=== PATIENT | male | born 1960 | race African-American/Black ===

== ENCOUNTER 2017-12-12 22:10 | Emergency (ER) | payer OTHER ==
[2017-12-12 22:34] LABS: #Eosinphils 0.3 thou/uL (0.0-0.7); #Lymphocytes 2.2 thou/uL (1.20-3.40); #Monocytes 0.7 thou/uL (0.11-0.59); #Neutrophils 2.4 thou/uL (1.40-6.50); %Basophils 0.9 % (0.0-1.0); %Eosinophils 5.1 % (0.0-10.0); %Lymphocytes 39.6 % (21.0-51.0); %Monocytes 11.8 % (0.0-10.0); %Neutrophils 42.7 % (42.0-75.0); Mean Corpuscular HGB CONC 32.6 g/dL (32.0-36.0); Mean Corpuscular Hemoglobin 27.6 pg (27.0-31.0); Mean Corpuscular Volume 84.5 fl (80.0-94.0); Mean Platelet Volume 7.5 fL (7.4-10.4); Platelet Count 194 thou/uL (130-400); Red Blood Cell (RBC) Count 5.07 mill/uL (4.70-6.10); White Blood Cell (WBC) Count 5.6 thou/uL (4.8-10.8)
[2017-12-12 22:56] LABS: ALT (SGPT) 47 U/L (8-55); AST (SGOT) 30 U/L (5-34); Alkaline Phosphatase 96 U/L (40-150); Anion Gap 13 mmol/L (10-20); BUN (Urea Nitrogen) 22 mg/dL (8.4-25.7); Bilirubin, Total 0.5 mg/dL (0.2-1.2); Calc. Creatinine Clearance 0 mL/min (70-130); Calcium 9.3 mg/dL (7.8-10.44); Carbon Dioxide 24 mmol/L (22-29); Chloride 106 mmol/L (98-107); Estimated GFR-MDRD 71; Globulin 2.8 g/dL (2.4-3.5); Glucose 109 mg/dL (70-105); Lipase 42 U/L (8-78); Potassium 3.9 mmol/L (3.5-5.1); Protein, Total 6.8 g/dL (6.0-8.3); Sodium 139 mmol/L (136-145)
== END 2017-12-12 23:34 | disposition left against medical advice (07) ==
LOC: ERS 22:10
DX: Z53.21 Procedure and treatment not carried out due to patient leaving prior to being seen by health care provider (principal)
CPT/HCPCS: 36415; 80053; 83690; 85025

== ENCOUNTER 2017-12-26 09:15 | Inpatient (IN) | payer OTHER ==
[2018-01-02 12:04] VITALS: BMI 29.6
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
[2018-01-08] MEDS ORDERED: Vancomycin HCl 1.5 GM in Sodium Chloride 0.9% 250 ML 300 ML IVPB SCH ×2 (07:00→19:00)
[2018-01-08] MEDS ORDERED: CEFAZOLIN/Water 2 GM/20 ML SYRINGE ONE (07:14)
[2018-01-08] MEDS ORDERED: Tranexamic Acid 1,000 MG/100 ML BAG ONE ×2 (07:14→11:22)
[2018-01-08] MEDS ORDERED: Ropivacaine 0.2% HCl/PF 20 ML ONE (07:42)
[2018-01-08] MEDS ORDERED: Midazolam HCl 2 mg/2 ml Vial ONE (07:42)
[2018-01-08] MEDS ORDERED: Fentanyl 100 MCG/2 ML VIAL ONE ×2 (07:42→11:14)
[2018-01-08] MEDS ORDERED: Metoprolol Tartrate 5 MG/5 ML VIAL ONE ×2 (08:10→11:23)
[2018-01-08] MEDS ORDERED: Bupivacaine 0.25% HCL 30 ML VIAL ONE (08:53)
[2018-01-08] MEDS ORDERED: Ropivacaine 0.2% 550 ML 550 ML NERVE BLCK SCH (09:29)
[2018-01-08] MEDS ORDERED: Promethazine HCl 25 MG/ML VIAL IM PRN ×2 (09:29→09:54)
[2018-01-08] MEDS ORDERED: Fentanyl 100 MCG/2 ML VIAL IV PRN (09:29)
[2018-01-08] MEDS ORDERED: HYDROcodone/Acetaminophen 10/325 mg Tablet PO PRN ×3 (09:29→12:35)
[2018-01-08] MEDS ORDERED: Zolpidem Tartrate 5 MG TAB PO PRN ×2 (09:29→12:35)
[2018-01-08] MEDS ORDERED: traMADol HCl 50 MG TAB PO PRN ×3 (09:29→12:35)
[2018-01-08] MEDS ORDERED: Ondansetron HCl/PF 4 MG/2 ML Vial IVP PRN ×3 (09:29→12:35)
[2018-01-08] MEDS ORDERED: Promethazine HCl 25 MG/ML VIAL SLOW IVP PRN ×2 (09:54→12:35)
[2018-01-08] MEDS ORDERED: Thrombin 5000 UNITS/5 ML VIAL ONE (10:23)
[2018-01-08] MEDS ORDERED: Tranexamic Acid 1,000 MG in Sodium Chloride 0.9% 100 ML IVPB SCH ×2 (11:15→12:35)
[2018-01-08] MEDS ORDERED: Ketorolac Tromethamine 30 MG/ML VIAL IVP SCH ×2 (12:00→14:00)
[2018-01-08] MEDS ORDERED: Fentanyl 100 MCG/2 ML VIAL SLOW IVP PRN (12:35)
[2018-01-08] MEDS ORDERED: Acetaminophen 325 MG TAB PO PRN (12:35)
[2018-01-08] MEDS ORDERED: diphenhydrAMINE 25 MG CAP PO PRN (12:35)
[2018-01-08] MEDS: Fentanyl 100 MCG/2 ML VIAL SLOW IVP PRN ×2 (12:44→18:50)
[2018-01-08] MEDS ORDERED: Famotidine 20 MG TAB PO SCH (12:45)
[2018-01-08] MEDS ORDERED: Hydrochlorothiazide 25 MG TAB PO SCH (12:45)
[2018-01-08] MEDS ORDERED: Ferrous Gluconate 324 MG TAB PO SCH (12:45)
[2018-01-08] MEDS ORDERED: Aspirin 81 mg Enteric Coated Tablet PO SCH (12:45)
[2018-01-08] MEDS ORDERED: Senokot S 8.6-50 MG TAB PO SCH (12:45)
[2018-01-08] MEDS ORDERED: Dextrose 50% Abboject 50 ML SYRINGE SLOW IVP PRN (12:52)
[2018-01-08] MEDS ORDERED: Dextrose 5% in Water 1,000 ML IV PRN (12:52)
[2018-01-08] MEDS ORDERED: metFORMIN 500 MG TAB PO SCH (13:00)
[2018-01-08] MEDS ORDERED: Multivitamin W/ Minerals 1 TAB PO SCH (13:00)
[2018-01-08] MEDS ORDERED: Lisinopril 20 MG TAB PO SCH (13:00)
--- NOTE | 2018-01-08 13:06 | RAD ---
LEFT KNEE TWO VIEWS: HISTORY: Postop. FINDINGS: The patient is status post total knee replacement. The knee prosthesis is in satisfactory position. No signs of fracture. IMPRESSION: Postoperative changes with placement of a total knee prosthesis. POS: [facility]
[2018-01-08] MEDS ORDERED: CEFAZOLIN/Water 2 GM/20 ML SYRINGE SLOW IVP SCH (14:00)
[2018-01-08] MEDS ORDERED: Ropivacaine 0.5% HCl/PF (150 MG/30 ML VIAL) ONE (14:01)
[2018-01-08] MEDS: HYDROcodone/Acetaminophen 10/325 mg Tablet PO PRN (14:16)
[2018-01-08] MEDS ORDERED: Lidocaine 1% PF 5 ML VIAL ONE (14:56)
[2018-01-08] MEDS ORDERED: Ondansetron HCl/PF 4 MG/2 ML Vial ONE (14:56)
[2018-01-08] MEDS ORDERED: PROPOFOL 200 MG/20 ML VIAL ONE (14:56)
[2018-01-08] MEDS ORDERED: Ketorolac Tromethamine 30 MG/ML VIAL ONE (14:56)
[2018-01-08] MEDS ORDERED: ePHEDrine/0.9% NaCl/PF SYRINGE 50 mg/10 ml ONE (14:56)
[2018-01-08] MEDS ORDERED: PHENYLEPHRINE-NS 100 MCG/ML 10 ML SYRINGE ONE (14:56)
--- NOTE | 2018-01-08 15:07 | OP ---
DATE OF PROCEDURE: 01/08/2018 SURGEON: Ishmael Birmingham M.D. DOMAIN ARCHITECT: Gama Anaya PA-C. ANESTHESIA: General plus femoral and sciatic nerve blocks. PREOPERATIVE DIAGNOSIS: Post-traumatic degenerative arthritis, left knee. POSTOPERATIVE DIAGNOSIS: Post-traumatic degenerative arthritis, left knee. PROCEDURES: Left total knee replacement with computer-assisted navigation with cemented Triathlon co mponents (#4 femoral component, #4 universal tibial baseplate with 9 mm CS plastic insert, and A32 al l plastic patellar component). TOURNIQUET TIME: Zero, not used. NARRATIVE REPORT: After satisfactory anesthesia was induced in supine position, the patient was prep ped and draped in the routine manner. A gently curved medial parapatellar incision was made incorpor ating the previous scar incision distally. Care was taken to the skin hamate and the skin and developing full thickness flaps to prevent damage to the previous scar tissue over the proximal tibia . Medial parapatellar arthrotomy was performed. Patella was dislocated laterally and portions of th e fat pad were excised for exposure. There was marked tricompartmental degenerative arthritis of the knee, especially medially, with large areas of exposed bone. Meniscal remnants and osteophytes were removed. Using the appropriate guides and the Vigoda pinless navigation system, the distal femoral and proximal tibial articular surfaces were excised with an oscillating saw to accept the trial comp onents. It was felt that #4 femoral component and #4 tibial baseplate with 9 mm CS plastic insert ga ve appropriate size, fit, stability, and correction of the preoperative deformity. The patellar estrellita cular surface was excised to accept an all plastic A32 patellar component. There was good patellar t racking. The trial components were removed. The skin incision was injected with 30 mL of 0.25% Migel macario. The wound was copiously irrigated with pulsatile lavage and the bony surfaces thoroughly clean ed and dried. The permanent components were then cemented in a single stage using 1 package of cemen t premixed with 1 gram of tobramycin powder. Excess cement was removed. There was again good fit an d stability of the components. The knee was then copiously irrigated. The medial retinaculum and qu adriceps mechanism was closed with interrupted #2 Vicryl and a running #2 Quill. Subcutaneous tissue s were closed with running 0 Quill suture and the skin closed with running subcuticular 3-0 Monoderm and SurgiSeal skin adhesive. A sterile bulky compressive dressing was applied and a sequential compr ession device was applied to his operated leg. He was awakened and taken to recovery room in stable condition. There were no apparent intraoperative complications. ESTIMATED BLOOD LOSS: 150 mL.
[2018-01-08] MEDS: Ketorolac Tromethamine 30 MG/ML VIAL IVP SCH ×2 (16:39→21:03)
[2018-01-08] MEDS: CEFAZOLIN/Water 2 GM/20 ML SYRINGE SLOW IVP SCH (16:40)
[2018-01-08] MEDS: Sodium Chloride 0.9% 1,000 ML IV SCH ×2 (17:13→22:35)
--- NOTE | 2018-01-08 19:05 | CON ---
DATE OF CONSULTATION: 01/08/2018 REASON FOR CONSULTATION: Medical management. HISTORY OF PRESENT ILLNESS: Mr. Jimenez is a 57-year-old male with a past medical history of hyperte nsion and diabetes, who was admitted to the hospital for a left knee replacement. He had a left tota l knee replacement with computer-assisted navigation with cemented Triathlon components on 01/08/2016 , and the procedure was successful. Due to his history of progressive post-traumatic degenerative ar thritis of his left knee, he has been continued on IV antibiotics to prevent first surgical infection . He otherwise has no complaints today. PAST MEDICAL HISTORY: Hypertension, type 2 diabetes mellitus, degenerative arthritis of the left kne e. PAST SURGICAL HISTORY: None. ALLERGIES: None. REVIEW OF SYSTEMS: GENERAL: Negative. HEENT: Negative. RESPIRATORY: Negative. CARDIOVASCULAR: Negative. ABDOMINAL: Negative. SKIN: Negative. MUSCULOSKELETAL: Per HPI. NEUROLOGIC: Negative. HEMATOLOGY: Negative. ALLERGY/IMMUNOLOGY: Negative. PSYCHIATRIC: Negative. PHYSICAL EXAMINATION: VITAL SIGNS: Stable. GENERAL: Not in acute distress, lying comfortably in bed. HEENT: Normocephalic, atraumatic, EOMI, PERRLA. Moist mucous membranes. NECK: Supple with full range of movement. No JVD. RESPIRATORY: Vesicular breath sounds bilaterally. No wheezes or rales. CARDIOVASCULAR: S1 and S2 only. No murmurs, rubs or gallops. ABDOMEN: Full, soft, nontender, nondistended. Bowel sounds positive. No organomegaly. SKIN: Warm, dry, well perfused with no rashes or lesions. MUSCULOSKELETAL: Left knee covered in protective cast. Dressings were clean and dry. PSYCHIATRIC: Normal mood and affect. NEUROLOGIC: Alert and oriented to time, place and person. No focal deficits. LABORATORY DATA: Unavailable/no labs done. IMAGING: Knee x-ray done on 01/08/2018 showed postoperative changes with placement of the total knee prosthesis. ASSESSMENT AND PLAN: 1. Hypertension. Blood pressure has been well controlled since admission. On outpatient basis, he takes hydrochlorothiazide and lisinopril. This can be continued. We will get a BMP in the morning a nd reassess. 2. Type 2 diabetes mellitus, this is also well controlled. He is on metformin 500 mg daily at home. Sugars have been controlled. Last glucose was [address] on a diabetic diet, finger stick glucose before meals and at bedtime. Continue metformin. Obtain hemoglobin A1c, hypoglycemia protocol, and sliding scale insulin. 3. Status post total left knee arthroplasty. Management per [facility]. He will be continued on IV cefazolin and vancomycin for now. We will continue to follow this patient. Thank you for allowing me to participate in the care of Mr. Jimenez. Ddo not hesitate to call if you have any questions.
[2018-01-08] MEDS: Aspirin 81 mg Enteric Coated Tablet PO SCH (21:04)
[2018-01-08] MEDS: Senokot S 8.6-50 MG TAB PO SCH (21:04)
[2018-01-09] MEDS: CEFAZOLIN/Water 2 GM/20 ML SYRINGE SLOW IVP SCH (00:28)
[2018-01-09] MEDS: Ketorolac Tromethamine 30 MG/ML VIAL IVP SCH ×4 (03:19→21:52)
[2018-01-09] MEDS: HumaLOG 300 UNITS/3 ML VIAL SC PRN ×3 (05:27→21:29)
[2018-01-09 05:56] LABS: Hemoglobin 12.5 g/dL (14.0-18.0); Mean Corpuscular HGB CONC 32.8 g/dL (32.0-36.0); Mean Corpuscular Hemoglobin 27.9 pg (27.0-31.0); Mean Corpuscular Volume 85.1 fl (80.0-94.0); Mean Platelet Volume 7.2 fL (7.4-10.4); Platelet Count 184 thou/uL (130-400); RBC Distribution Width 11.8 % (11.5-14.5); Red Blood Cell (RBC) Count 4.46 mill/uL (4.70-6.10); White Blood Cell (WBC) Count 7.5 thou/uL (4.8-10.8)
[2018-01-09 05:59] LABS: Hemoglobin A1c 5.7 % (4.0-6.0)
[2018-01-09 06:34] LABS: Anion Gap 8 mmol/L (10-20); BUN (Urea Nitrogen) 16 mg/dL (8.4-25.7); Calc. Creatinine Clearance 99 mL/min (70-130); Calcium 8.7 mg/dL (7.8-10.44); Carbon Dioxide 26 mmol/L (22-29); Chloride 105 mmol/L (98-107); Estimated GFR-MDRD Greater than 90; Glucose 168 mg/dL (70-105); Potassium 3.9 mmol/L (3.5-5.1); Sodium 135 mmol/L (136-145)
[2018-01-09] MEDS: HYDROcodone/Acetaminophen 10/325 mg Tablet PO PRN ×2 (08:13→19:18)
[2018-01-09] MEDS: Senokot S 8.6-50 MG TAB PO SCH ×2 (08:16→20:46)
[2018-01-09] MEDS: Aspirin 81 mg Enteric Coated Tablet PO SCH ×2 (08:17→20:46)
[2018-01-09] MEDS: Multivitamin W/ Minerals 1 TAB PO SCH (08:17)
[2018-01-09] MEDS: metFORMIN 500 MG TAB PO SCH (08:17)
[2018-01-09] MEDS: Famotidine 20 MG TAB PO SCH (08:18)
[2018-01-09] MEDS: Ferrous Gluconate 324 MG TAB PO SCH ×2 (08:18→20:46)
[2018-01-09] MEDS: Hydrochlorothiazide 25 MG TAB PO SCH (08:18)
[2018-01-09] MEDS: Lisinopril 20 MG TAB PO SCH (08:19)
[2018-01-09] MEDS: Sodium Chloride 0.9% 1,000 ML IV SCH ×2 (09:04→17:00)
[2018-01-10] MEDS: Ketorolac Tromethamine 30 MG/ML VIAL IVP SCH ×2 (03:30→09:57)
[2018-01-10] MEDS: Sodium Chloride 0.9% 1,000 ML IV SCH (04:37)
[2018-01-10] MEDS: HYDROcodone/Acetaminophen 10/325 mg Tablet PO PRN ×2 (05:46→09:58)
[2018-01-10] MEDS: Lisinopril 20 MG TAB PO SCH (09:11)
[2018-01-10] MEDS: metFORMIN 500 MG TAB PO SCH (09:11)
[2018-01-10] MEDS: Aspirin 81 mg Enteric Coated Tablet PO SCH (09:11)
[2018-01-10] MEDS: Hydrochlorothiazide 25 MG TAB PO SCH (09:12)
[2018-01-10] MEDS: Senokot S 8.6-50 MG TAB PO SCH (09:12)
[2018-01-10] MEDS: Multivitamin W/ Minerals 1 TAB PO SCH (09:12)
[2018-01-10] MEDS: Famotidine 20 MG TAB PO SCH (09:12)
[2018-01-10] MEDS: Ferrous Gluconate 324 MG TAB PO SCH (09:12)
[2018-01-10] MEDS: HumaLOG 300 UNITS/3 ML VIAL SC PRN (11:10)
[2018-01-10] MEDS ORDERED: hydrALAZINE 20 MG/ML VIAL SLOW IVP PRN (11:40)
[2018-01-10 11:57] VITALS: BP 158/102; TEMP 98.3
== END 2018-01-10 14:15 | disposition home or self-care (01) | DRG 470 ==
LOC: SURG A 01-08 06:21 → SJJU 01-08 11:59
PROVIDERS: ADMIT Orthopaedic Surgery; ATTEND Orthopaedic Surgery
PROC: 0SRD0J9 Replacement of Left Knee Joint with Synthetic Substitute, Cemented, Open Approach (ICD-10-PCS; principal; 2018-01-08)
DX: M17.32 Unilateral post-traumatic osteoarthritis, left knee (principal); E11.9 Type 2 diabetes mellitus without complications; I10 Essential (primary) hypertension; F41.9 Anxiety disorder, unspecified; Z79.84 Long term (current) use of oral hypoglycemic drugs; Z79.899 Other long term (current) drug therapy; Z96.651 Presence of right artificial knee joint
CPT/HCPCS: 36415; 36416; 80048; 83036; 85027; A4306; C1713; C1776; G8978-GP-CM; G8979-GP-CJ; J1885; J2001; J2250; J2405; J2704; J2795; J3010; J3370; J7050; S0020

== ENCOUNTER 2018-01-02 11:50 | Outpatient (CLI) | payer OTHER ==
[2018-01-02 13:17] LABS: Hemoglobin 14.3 g/dL (14.0-18.0); Mean Corpuscular HGB CONC 33.4 g/dL (32.0-36.0); Mean Corpuscular Hemoglobin 28.5 pg (27.0-31.0); Mean Corpuscular Volume 85.3 fl (80.0-94.0); Mean Platelet Volume 7.9 fL (7.4-10.4); Platelet Count 170 thou/uL (130-400); RBC Distribution Width 12.2 % (11.5-14.5); Red Blood Cell (RBC) Count 5.01 mill/uL (4.70-6.10); White Blood Cell (WBC) Count 9.3 thou/uL (4.8-10.8)
[2018-01-02 13:25] LABS: Prothrombin Time 13.1 SEC (12.0-14.7)
[2018-01-02 13:30] LABS: Bilirubin Negative (Negative); Blood, Urine Negative (Negative); Clarity CLEAR (Clear); Glucose, Urine (Dipstick) Negative (Negative); Leukocyte Negative (Negative); Nitrite Negative (Negative); Protein, Urine (Dipstick) Negative (Neg-Trace); Specific Gravity, Urine 1.031 (1.002-1.036); Urobilinogen 0.2 mg/dL (0.2-1.0); pH, Urine 5.5 (5.0-9.0)
[2018-01-02 13:37] LABS: Bacteria/HPF None Seen HPF (None Seen); Hyaline Casts/LPF 0-3 HYALINE CAST LPF (0-3 Hyaline); Pathc Cast-AUWi Flag 0.27 (0-2.49); RBC/HPF 0-3 HPF (0-3); Squamous Epithelial None Seen HPF (0-3); WBC/HPF None Seen HPF (0-3)
[2018-01-02 13:44] LABS: Anion Gap 13 mmol/L (10-20); BUN (Urea Nitrogen) 19 mg/dL (8.4-25.7); Calc. Creatinine Clearance 0 mL/min (70-130); Calcium 9.4 mg/dL (7.8-10.44); Carbon Dioxide 22 mmol/L (22-29); Chloride 108 mmol/L (98-107); Estimated GFR-MDRD 86; Glucose 111 mg/dL (70-105); Potassium 3.8 mmol/L (3.5-5.1); Sodium 139 mmol/L (136-145)
== END 2018-01-02 11:51 | disposition home or self-care (01) ==
LOC: LABBT 11:50
PROVIDERS: ATTEND Orthopaedic Surgery
DX: Z01.818 Encounter for other preprocedural examination (principal); M17.32 Unilateral post-traumatic osteoarthritis, left knee
CPT/HCPCS: 80048; 81001; 85027; 85610; 86850; 86900; 86901; 87081; 93005; 93010

== ENCOUNTER 2018-01-20 22:54 | Inpatient (IN) | payer OTHER ==
[~2018-01-20 22:54] MED LIST: ISOVUE-370 76%-LOCM 1 ML ONE
[2018-01-20] MEDS ORDERED: Ondansetron HCl/PF 4 MG/2 ML Vial ONE (23:12)
[2018-01-20 23:43] LABS: INR-International Normal Ratio 1.2; PTT 28.1 SEC (22.9-36.1); Prothrombin Time 15.3 SEC (12.0-14.7)
[2018-01-20 23:48] LABS: Hemoglobin 11.1 g/dL (14.0-18.0); Mean Corpuscular HGB CONC 33.3 g/dL (32.0-36.0); Mean Corpuscular Hemoglobin 27.4 pg (27.0-31.0); Mean Corpuscular Volume 82.4 fl (80.0-94.0); Platelet Count 423 thou/uL (130-400); Red Blood Cell (RBC) Count 4.06 mill/uL (4.70-6.10); White Blood Cell (WBC) Count 11.5 thou/uL (4.8-10.8)
[2018-01-20 23:52] LABS: ALT (SGPT) 51 U/L (8-55); AST (SGOT) 42 U/L (5-34); Albumin 2.6 g/dL (3.5-5.0); Alkaline Phosphatase 70 U/L (40-150); Anion Gap 11 mmol/L (10-20); BUN (Urea Nitrogen) 13 mg/dL (8.4-25.7); Bilirubin, Total 0.8 mg/dL (0.2-1.2); CK (CPK) 23 U/L (30-200); Calc. Creatinine Clearance 0 mL/min (70-130); Calcium 8.3 mg/dL (7.8-10.44); Carbon Dioxide 25 mmol/L (22-29); Chloride 102 mmol/L (98-107); Estimated GFR-MDRD Greater than 90; Globulin 2.5 g/dL (2.4-3.5); Glucose 123 mg/dL (70-105); Lipase 35 U/L (8-78); Magnesium 1.6 mg/dL (1.6-2.6); Protein, Total 5.1 g/dL (6.0-8.3); Sodium 134 mmol/L (136-145)
[2018-01-20 23:54] LABS: CKMB 0.3 ng/mL (0-6.6); Troponin I Less than 0.010 ng/mL (< 0.028)
[2018-01-20 23:58] LABS: D-Dimer Test 3.95 *mcg/mL (0.27-0.43)
--- NOTE | 2018-01-20 23:58 | RAD ---
PORTABLE AP CHEST X-RAY 01/20/18 HISTORY: Weakness since left knee surgery two weeks ago. Unable to eat over the last two weeks. Intermittent d iarrhea and constipation. COMPARISON: 11/28/16. FINDINGS: The cardiac silhouette and pulmonary vasculature are within normal limits. The lungs are clear. Degen erative changes are seen in the spine. There has been no interval change from prior study. There has been no interval change from prior study. IMPRESSION: No acute cardiopulmonary process. POS: [facility]
[2018-01-21 00:07] LABS: #Eosinphils 0.2 thou/uL (0.0-0.7); #Lymphocytes 1.8 thou/uL (1.20-3.40); #Monocytes 1.2 thou/uL (0.11-0.59); #Neutrophils 8.3 thou/uL (1.40-6.50); %Basophils 0.1 % (0.0-1.0); %Eosinophils 1.4 % (0.0-10.0); %Lymphocytes 15.3 % (21.0-51.0); %Monocytes 10.7 % (0.0-10.0); %Neutrophils 72.5 % (42.0-75.0); PLT Morphology Comment Appears Adequate; RBC Morphology Normal
--- NOTE | 2018-01-21 00:24 | CT ---
CT ABDOMEN AND PELVIS WITH IV CONTRAST 01/20/18 HISTORY: Abdominal pain and weakness. Patient also reports back pain and nausea. Substernal chest pain and donita rtness of breath and intermittent fever. COMPARISON: CT angiogram abdomen on 07/28/[address] abdomen and pelvis on 03/18/15. Calcified granuloma is present at the left lung base with minimal linear atelectasis versus scarring in the right middle lobe. Lung bases are otherwise clear. The liver, spleen, pancreas, bilateral adrenal glands, right kidney and urinary bladder demonstrate a normal CT appearance. Stable subcentimeter too small to characterize hypodense lesions are again see n in the left kidney. Small amount of intraperitoneal free fluid is seen in the abdomen and pelvis with inflammatory change s in the presacral location. There is diffuse colonic wall thickening extending from the cecum to the level of the rectum. Finding s are consistent with colitis. While findings could be related to pseudomembranous colitis given diff use involvement of the colon, colitis related to infectious or inflammatory etiology is also a possib ility. The appendix is visualized and appears normal in caliber. Normal caliber loops of small bowel are roney ntified. There is a small fat containing umbilical hernia again present. No fluid collection or lymphadenopathy is seen in the abdomen or pelvis. Vascular calcifications in the abdominal aorta and iliac arteries. IMPRESSION: 1. Diffuse colitis extending from the cecum to the rectum. Given diffuse involvement and promine nt thickening of the colon, findings could potentially be related to pseudomembranous colitis in the correct clinical scenario. However, infectious or inflammatory etiologies for the colitis are also di fferential considerations. 2. Small amount of intraperitoneal free fluid with mesenteric edema and pericolic inflammatory c hanges. 3. Stable subcentimeter too small to characterize hypodense lesions in the left kidney. POS: [facility]
[2018-01-21] MEDS ORDERED: Vancomycin HCl 25 MG/ML Oral PO SCH ×2 (01:15→09:00)
[2018-01-21] MEDS ORDERED: cefTRIAXone\\ROCEPHIN 2 GM in Sodium Chloride 0.9% 100 ML IVPB SCH (01:15)
[2018-01-21] MEDS ORDERED: metroNIDAZOLE 500 MG/100 ML BAG ONE (02:45)
[2018-01-21] MEDS ORDERED: Fentanyl 100 MCG/2 ML VIAL SLOW IVP PRN (03:15)
[2018-01-21] MEDS ORDERED: HYDROcodone/Acetaminophen 5/325 mg Tablet PO PRN ×2 (03:16)
[2018-01-21] MEDS ORDERED: Ondansetron HCl/PF 4 MG/2 ML Vial IVP PRN (03:16)
[2018-01-21] MEDS ORDERED: Acetaminophen 325 MG TAB PO PRN ×2 (03:16→04:15)
[2018-01-21] MEDS ORDERED: Ondansetron ODT 4 MG TAB SL PRN (03:16)
[2018-01-21 03:29] VITALS: BMI 29.6
[2018-01-21] MEDS: Sodium Chloride 0.45% 1,000 ML IV SCH ×2 (03:57→04:21)
[2018-01-21] MEDS ORDERED: Dextrose 50% Abboject 50 ML SYRINGE SLOW IVP PRN (04:15)
[2018-01-21] MEDS ORDERED: Sodium Chloride 0.9% 1,000 ML IV SCH (04:15)
[2018-01-21] MEDS ORDERED: Guaifenesin DM 100-10/5 ML UDCUP PO PRN (04:15)
[2018-01-21] MEDS ORDERED: HumaLOG 300 UNITS/3 ML VIAL SC PRN (04:15)
[2018-01-21] MEDS ORDERED: Dextrose 5% in Water 1,000 ML IV PRN (04:15)
--- NOTE | 2018-01-21 05:13 | HP ---
REASON FOR ADMISSION: Gastroenteritis, sepsis. HISTORY OF PRESENTING ILLNESS: The patient gives history of having loss of appetite, which has been progressively getting worse from last 8 days. He also has developed abdominal pain yesterday evening in the lower quadrants. He has been having diarrhea from last 2 days, which has been watery 3-4 shivani es. Stool also has mucoid elements in it and it is very smelly per patient. He gives history of hav ing had left total knee replacement done by Dr. Birmingham 9 days back. He has not been able to eat solid food due to loss of appetite and has been on just water and some liquids at times. PAST MEDICAL AND SURGICAL HISTORY: History of diabetes mellitus type 2, hypertension, migraine, hepa titis C with cirrhosis, chronic back pain, recent left total knee replacement. CURRENT MEDICATIONS: Aspirin 81 mg p.o. twice daily, Pepcid 20 mg daily, hydrochlorothiazide 25 mg d aily, [place] p.r.n. for pain, lisinopril 40 mg p.o. daily, Mobic 7.5 mg p.r.n., metformin 500 mg p.o. daily, and multivitamin 1 tab once daily. ALLERGIES: No known drug allergies. PERSONAL HISTORY: Does not abuse alcohol or drugs. No history of smoking. Lives with his . FAMILY HISTORY: Mother is healthy and living. Father of pancreatic cancer at the age of 45 yea rs. All of his father's siblings nearly six of them of pancreatic cancer. REVIEW OF SYSTEMS: The following complete review of systems was negative, unless otherwise mentioned in the HPI or below: Constitutional: Weight loss or gain, ability to conduct usual activities. Sk in: Rash, itching. Eyes: Double vision, pain. ENT/Mouth: Nose bleeding, neck stiffness, pain, te nderness. Cardiovascular: Palpitations, dyspnea on exertion, orthopnea. Respiratory: Shortness of breath, wheezing, cough, hemoptysis, fever or night sweats. Gastrointestinal: Poor appetite, abdom inal pain, heartburn, nausea, vomiting, constipation, or diarrhea. Genitourinary: Urgency, frequenc y, dysuria, nocturia. Musculoskeletal: Pain, swelling. Neurologic/Psychiatric: Anxiety, depressio n. Allergy/Immunologic: Skin rash, bleeding tendency. PHYSICAL EXAMINATION: GENERAL: Patient is a 57-year-old male who is currently not in any acute distress. VITAL SIGNS: Blood pressure 120/88, pulse 120 per minute, respiratory rate 22 per minute, temperatur e 99.1 degrees Fahrenheit, saturating 99% on room air. NECK: Supple, no elevated JVD. HEENT: Eyes, extraocular muscles intact. Pupils reacting to light. Oral cavity, mucous membranes a re dry. No exudates or congestion. CARDIOVASCULAR: S1, S2 heard. Tachycardic, no murmur. RESPIRATORY: Air entry 1+ bilaterally. No rales or rhonchi. ABDOMEN: Mildly distended, no rigidity or guarding. Has mild tenderness in the lower quadrant, no r ebound. Bowel sounds are heard. EXTREMITIES: There is mild edema around the left knee with recent surgery. No calf tenderness. VASCULAR: Peripheral pulses are 1+ bilateral, no ischemic ulcerations or gangrene. CENTRAL NERVOUS SYSTEM: No gross focal deficit seen. Patient is alert, awake, oriented well. PSYCHIATRIC: Patient's mood is euthymic. No hallucinations or delusions. LABORATORY AND X-RAY FINDINGS: White count 11, H and H 11 and 33, platelet count 423, 72% neutrophil s, MCV is 82. PT/INR 15 and 1.2, PTT 28. D-dimer is 3.95. Sodium 134, BUN is 13, creatinine 0.7, s torres bicarbonate 25, AST 42, ALT 51, alkaline phosphatase 70, total bilirubin 0.8. Cardiac enzymes a re negative. BNP is less than 10, albumin is 2.6. Lipase is 35. Chest x-ray done shows no acute ca rdiopulmonary abnormalities. CT of the abdomen and pelvis done shows diffuse colitis extending from cecum to rectum with diffuse involvement and prominent thickening of the colon, possibilities include C. diff, with also small amount of ascites with mesenteric edema and pericolonic inflammatory change s seen. CLINICAL IMPRESSION AND PLAN: Patient will be admitted to medical floor for likely Clostridium diffi cile. Will obtain stool samples for Clostridium difficile and cultures. He will be on normal saline at 100 mL per hour. We will place him on Flagyl 500 mg IV q.8 hourly and ciprofloxacin 400 q.12 pebbles rs. His ciprofloxacin will be discontinued once confirmation of Clostridium difficile is obtained. He will also be on Humalog mild dose coverage. We will obtain ultrasound venous Doppler of bilateral lower extremities to rule out deep venous thrombosis. Patient states he was taking low dose aspirin once a day, not twice in the last few days now. If needed, Gastroenterology consultation will be re quested. He will be on a clear liquid diet for now until his diarrhea settles down.
[2018-01-21] MEDS: Enoxaparin Sodium 40 MG/0.4 ML SYRINGE SC SCH (08:12)
[2018-01-21] MEDS: Famotidine 20 MG TAB PO SCH ×2 (08:13→20:24)
[2018-01-21] MEDS: Multivit, Therapeutic 1 TAB PO SCH (08:13)
--- NOTE | 2018-01-21 09:10 | ULT ---
ULTRASOUND WITH DOPPLER DUPLEX VENOUS LOWER EXTREMITIES BILATERAL: HISTORY: A 57-year-old male with postsurgical bilateral lower extremity pain. TECHNIQUE: Color flow Doppler, spectral waveform analysis of pulsed Doppler, and kingston-scale imaging with adryan brandy and augmentation, were used to evaluate the bilateral common femoral, femoral, popliteal, magazine keeper ior tibial, and superficial femoral, veins; and the proximal portions of the profunda femoral and gre ater saphenous, veins. FINDINGS: There is normal compressibility, demonstration of blood flow by color Doppler and pulsed Doppler, and response to augmentation, in all interrogated veins. IMPRESSION: Negative. No deep vein thrombosis in the bilateral lower extremities. jn[] POS: [facility]
[2018-01-21] MEDS: metroNIDAZOLE 500 MG in Premix Bag 1 BAG IVPB SCH ×2 (09:24→17:03)
--- NOTE | 2018-01-21 12:25 | PDOC.PN ---
- Subjective Encounter Start Date: 01/21/18 Encounter Start Time: 12:23 Mr. Jimenez was seen today in follow-up. He says he is feeling better. He has less abdominal pain, and the diarrhea is slowing down. - Objective Resuscitation Status: Resuscitation Status FULL:Full Resuscitation MAR Reviewed: Yes Vital Signs & Weight: Vital Signs (12 hours) Temp Pulse Resp BP Pulse Ox 01/21/18 08:00 98.9 F 112 H 16 114/73 96 01/21/18 03:36 99.1 F 126 H 22 H 98 01/21/18 03:05 99.1 F 126 H 22 H 122/84 98 Weight Weight 189 lb I&O: 01/20/18 01/21/18 01/22/18 06:59 06:59 06:59 Intake Total 540 Balance 540 Result Diagrams: 01/20/18 23:12 01/20/18 23:12 Additional Labs: Accuchecks 01/21/18 05:07 POC Glucose 118 H Phys Exam - Physical Examination HEENT: PERRLA Respiratory: no wheezing, no rales, no rhonchi, clear to auscultation bilateral Cardiovascular: RRR, no significant murmur Gastrointestinal: soft, non-tender, no distention, positive bowel sounds Musculoskeletal: no edema Dx/Plan (1) Clostridium difficile colitis Status: Acute (2) Hypertension Code(s): I10 - ESSENTIAL (PRIMARY) HYPERTENSION Status: Acute (3) Diabetes mellitus type 2 in nonobese Code(s): E11.9 - TYPE 2 DIABETES MELLITUS WITHOUT COMPLICATIONS Status: Acute (4) Hepatitis C Code(s): B19.20 - UNSPECIFIED VIRAL HEPATITIS C WITHOUT HEPATIC COMA Status: Suspected - Plan * Clostridium Difficile Colitis- improving- will Continue Vancomycin, orally * Discontinue Cipro * DM- blood glucose is stable * HTN- blood pressure is stable * Continue Fluid resusitation * Advance diet.
[2018-01-21] MEDS: Sodium Chloride 0.9% 1,000 ML IV SCH (12:47)
[2018-01-21] MEDS: Vancomycin HCl 25 MG/ML Oral PO SCH ×3 (12:48→20:24)
[2018-01-21] MEDS: HYDROcodone/Acetaminophen 5/325 mg Tablet PO PRN (21:15)
[2018-01-22] MEDS: metroNIDAZOLE 500 MG in Premix Bag 1 BAG IVPB SCH ×3 (01:06→17:13)
[2018-01-22] MEDS: Sodium Chloride 0.9% 1,000 ML IV SCH ×2 (01:07→13:23)
[2018-01-22 04:35] LABS: #Eosinphils 0.3 thou/uL (0.0-0.7); #Lymphocytes 1.6 thou/uL (1.20-3.40); #Monocytes 1.2 thou/uL (0.11-0.59); #Neutrophils 6.5 thou/uL (1.40-6.50); %Basophils 0.1 % (0.0-1.0); %Eosinophils 3.1 % (0.0-10.0); %Lymphocytes 16.3 % (21.0-51.0); %Monocytes 12.2 % (0.0-10.0); %Neutrophils 68.3 % (42.0-75.0); Hemoglobin 9.5 g/dL (14.0-18.0); Mean Corpuscular HGB CONC 33.1 g/dL (32.0-36.0); Mean Corpuscular Hemoglobin 27.5 pg (27.0-31.0); Mean Corpuscular Volume 83.1 fl (80.0-94.0); Mean Platelet Volume 5.9 fL (7.4-10.4); Platelet Count 362 thou/uL (130-400); RBC Distribution Width 11.9 % (11.5-14.5); Red Blood Cell (RBC) Count 3.44 mill/uL (4.70-6.10); White Blood Cell (WBC) Count 9.5 thou/uL (4.8-10.8)
[2018-01-22 05:01] LABS: Anion Gap 9 mmol/L (10-20); BUN (Urea Nitrogen) 10 mg/dL (8.4-25.7); Calc. Creatinine Clearance 127 mL/min (70-130); Calcium 7.9 mg/dL (7.8-10.44); Carbon Dioxide 21 mmol/L (22-29); Chloride 107 mmol/L (98-107); Estimated GFR-MDRD Greater than 90; Glucose 101 mg/dL (70-105); Potassium 4.4 mmol/L (3.5-5.1); Sodium 133 mmol/L (136-145)
[2018-01-22] MEDS: Multivit, Therapeutic 1 TAB PO SCH (09:42)
[2018-01-22] MEDS: Enoxaparin Sodium 40 MG/0.4 ML SYRINGE SC SCH (09:42)
[2018-01-22] MEDS: Vancomycin HCl 25 MG/ML Oral PO SCH ×4 (09:42→20:08)
[2018-01-22] MEDS: Saccharomyces boulardii 250 MG CAP PO SCH (09:42)
[2018-01-22] MEDS: Famotidine 20 MG TAB PO SCH ×2 (09:50→20:08)
[2018-01-22] MEDS: HYDROcodone/Acetaminophen 5/325 mg Tablet PO PRN (13:21)
--- NOTE | 2018-01-22 14:54 | PDOC.PN ---
- Subjective Encounter Start Date: 01/22/18 Encounter Start Time: 14:53 Mr. Jimenez was seen today in follow-up. He says he is still having about 3 large diarrheal stools a day. He says the abdominal pain has improved - Objective Resuscitation Status: Resuscitation Status FULL:Full Resuscitation MAR Reviewed: Yes Vital Signs & Weight: Vital Signs (12 hours) Temp Pulse Resp BP Pulse Ox 01/22/18 11:00 97.7 F 100 18 146/77 H 97 01/22/18 08:00 97.8 F 101 H 18 136/87 99 01/22/18 04:00 97.4 F L 97 16 121/83 99 Weight Admit Weight 189 lb Weight 189 lb I&O: 01/21/18 01/22/18 01/23/18 06:59 06:59 06:59 Intake Total 540 3199 180 Balance 540 3199 180 Result Diagrams: 01/22/18 03:59 01/22/18 03:59 Additional Labs: Accuchecks 01/22/18 01/22/18 01/21/18 11:20 05:01 20:32 POC Glucose 134 H 101 127 H 01/21/18 16:24 POC Glucose 122 H Phys Exam - Physical Examination HEENT: PERRLA Respiratory: no wheezing, no rales, no rhonchi Cardiovascular: RRR, no significant murmur Gastrointestinal: soft, non-tender, positive bowel sounds Musculoskeletal: no edema Dx/Plan (1) Clostridium difficile colitis Status: Acute (2) Hypertension Code(s): I10 - ESSENTIAL (PRIMARY) HYPERTENSION Status: Acute (3) Diabetes mellitus type 2 in nonobese Code(s): E11.9 - TYPE 2 DIABETES MELLITUS WITHOUT COMPLICATIONS Status: Acute (4) Hepatitis C Code(s): B19.20 - UNSPECIFIED VIRAL HEPATITIS C WITHOUT HEPATIC COMA Status: Suspected - Plan * Clostridium Difficile Colitis- will continue Flagyl and oral Vancomycin * DM- blood glucose is stable * Will monitor in the hospital overnight- home when diarrhea slows, hopefully tomorrow.
[2018-01-23] MEDS: metroNIDAZOLE 500 MG in Premix Bag 1 BAG IVPB SCH ×2 (02:27→09:25)
[2018-01-23] MEDS: Sodium Chloride 0.9% 1,000 ML IV SCH (02:28)
[2018-01-23] MEDS: Vancomycin HCl 25 MG/ML Oral PO SCH (09:25)
[2018-01-23] MEDS: Multivit, Therapeutic 1 TAB PO SCH (09:26)
[2018-01-23] MEDS: Saccharomyces boulardii 250 MG CAP PO SCH (09:26)
[2018-01-23] MEDS: Enoxaparin Sodium 40 MG/0.4 ML SYRINGE SC SCH (09:26)
[2018-01-23] MEDS: Famotidine 20 MG TAB PO SCH (09:26)
[2018-01-23 12:26] VITALS: BP 130/80; TEMP 97.4
--- NOTE | 2018-01-23 15:34 | DIS ---
DATE OF ADMISSION: 01/21/2018 DATE OF DISCHARGE: 01/23/2018 DISCHARGE DIAGNOSES: Clostridium difficile colitis, hypertension, type 2 diabetes mellitus and nonob roly, hepatitis C. HOSPITAL COURSE: This is a 57-year-old man who presents to the hospital with a history of poor appet ite for about 8 days. He also had abdominal pain in his lower quadrants and diarrhea for 2 days, whi ch has been on for about 4 days with mucus. The patient reports it is nonbloody. He has a history o f total knee replacement on the left done by Dr. Birmingham 9 days before he presented. He reports he has not been able to eat solid food due to loss of appetite. HOSPITAL COURSE: He was hydrated with IV fluids and stool samples were positive for C. diff. He was subsequently started on p.o. vancomycin and IV metronidazole. He improved while in the hospital and diarrhea had resolved. On the day of discharge, he had only had two bowel movements, which were rel atively well formed per patient. He also stated that he felt much better and was comfortable and wit h the plan to discharge him home on day of discharge. PHYSICAL EXAMINATION: VITAL SIGNS: He was examined on the day of discharge. Blood pressure was 130/80, temperature 97.4 d egree Fahrenheit, pulse rate was about 80, oxygen saturation was 99% on room air and respiratory rate was 18. GENERAL: Not in acute distress, lying comfortably in bed. HEENT: PERRLA, EOMI, not pale, anicteric. Moist mucous membranes. Normocephalic, atraumatic. RESPIRATORY: Vesicular breath sounds bilaterally. No wheezes or rales. CARDIOVASCULAR: Regular rate and rhythm. No murmurs, rubs or gallops. GASTROINTESTINAL: Soft, not tender, not distended. Bowel sounds present. No organomegaly. MUSCULOSKELETAL: No edema. Moves extremities spontaneously. NEUROLOGIC: Alert and well oriented with no focal deficits. PSYCHIATRIC: Normal mood and affect. SKIN: Warm, dry, well-perfused. No rashes or lesions. LABORATORY DATA: WBC 9.5, hemoglobin 9.5, platelets 362. Sodium 133, potassium 4.4, chloride 107, c arbon dioxide 21, anion gap 9, BUN 10, creatinine 0.77, glucose 101. CONSULTATIONS: None. CONDITION AT DISCHARGE: Stable and improved. DISCHARGE MEDICATIONS: Metronidazole 500 mg every 8 hours, saccharomyces boulardii 250 mg daily, van comycin 120 mg orally 4 times a day, hydrocodone/APAP 10/325 two tabs oral twice a day, multivitamins 1 capsule daily, lisinopril 40 mg daily, famotidine 20 mg daily, metformin 500 mg daily, hydrochloro thiazide 25 mg daily, meloxicam 1 tab daily as needed for pain, and aspirin 81 mg twice a day. IMAGING: Ultrasound with Doppler duplex venous lower extremities bilateral showed no DVT in the bila teral lower extremities. CT, abdomen/pelvis with IV contrast showed diffuse colitis extending from the cecum to the rectum. G iven the diffuse involvement and prominent thickening of the colon findings could potentially be rela tracy to pseudomembranous colitis in the correct clinical scenario; however, infectious inflammatory et iologies for the colitis are also differential considerations. There was a small amount of intraperi toneal free fluid within the mesenteric edema and pericolic inflammatory changes, stable subcentimete r too small to characterize hypodense lesion in the left kidney. Activity is to resume as tolerated. CARE GOALS: The patient is to take his medications as prescribed. He is to follow up with his prima ry care physician within 1 week of discharge. DIET: Heart healthy, diabetic. DISPOSITION: Home.
--- NOTE | 2018-01-27 15:13 | EKG ---
Test Reason : Blood Pressure : / mmHG Vent. Rate : 121 BPM Atrial Rate : 121 BPM P-R Int : 144 ms QRS Dur : 082 ms QT Int : 318 ms P-R-T Axes : 055 021 038 degrees QTc Int : 451 ms Sinus tachycardia Otherwise normal ECG Confirmed by RAQUEL JONES ([id number]), editorial specialist STEPHY FERNANDEZ ([id number]) on 01/27/2018 3:12:52 PM Referred By: Confirmed By:RAQUEL JONES
== END 2018-01-23 12:20 | disposition home or self-care (01) | DRG 373 ==
LOC: ERS 22:54 → T4-A 01-21 01:13
PROVIDERS: ADMIT Internal Medicine; ATTEND Internal Medicine
DX: A04.72 Enterocolitis due to Clostridium difficile, not specified as recurrent (principal); K74.69 Other cirrhosis of liver; E86.0 Dehydration; B19.20 Unspecified viral hepatitis C without hepatic coma; E11.9 Type 2 diabetes mellitus without complications; Z96.652 Presence of left artificial knee joint; I10 Essential (primary) hypertension
CPT/HCPCS: 36415; 36416; 71045; 74177; 80048; 80053; 82550; 82553; 83605; 83690; 83735; 83880; 84484; 85025; 85379; 85610; 85730; 87040; 87045; 87046; 87324; 87449; 87493; 87899; 93005; 93970; 96361; 96365; 96367; 96375; G8978-GP-CI; G8979-GP-CI; G8980-GP-CI; G8987-GO-CI; G8988-GO-CI; G8989-GO-CI; J0696; J0744; J1650; J2405; J7050

== ENCOUNTER 2018-09-19 10:19 | Outpatient (CLI) | payer OTHER ==
--- NOTE | 2018-09-19 11:33 | RAD ---
RIGHT KNEE THREE VIEWS: History: Right knee pain. FINDINGS/IMPRESSION: There are post op changes of total knee arthroplasty in good position and alignment. No fracture or d islocation is seen. There is no evidence of loosening of the knee prosthesis. POS: [facility]
--- NOTE | 2018-09-19 11:34 | RAD ---
LEFT KNEE THREE VIEWS: History: Left knee pain. FINDINGS/IMPRESSION: There are post op changes of total knee arthroplasty in good position and alignment. No fracture, dis location, bony destruction or loosening is identified. POS: [facility]
--- NOTE | 2018-09-19 13:05 | RAD ---
BILATERAL HIPS 2 VIEWS EACH: Date: 09/19/18 HISTORY: Arthritis, bilateral hip pain. FINDINGS: Degenerative changes are seen in the hip joints bilaterally, manifested by osteophyte formation and j oint space narrowing. No fracture, dislocation, or bony destruction is seen. IMPRESSION: Bilateral hip osteoarthritis. POS: [facility]
== END 2018-09-19 10:20 | disposition home or self-care (01) ==
LOC: BICRAD 10:19
PROVIDERS: ATTEND Orthopaedic Surgery
DX: M16.0 Bilateral primary osteoarthritis of hip (principal); Z96.653 Presence of artificial knee joint, bilateral
CPT/HCPCS: 73521

== ENCOUNTER 2018-12-10 17:11 | Emergency (ER) | payer OTHER ==
[2018-12-10] MEDS ORDERED: Acetaminophen 500 MG TAB ONE (20:31)
[2018-12-10] MEDS ORDERED: Ketorolac Tromethamine 30 MG/ML VIAL ONE (20:31)
--- NOTE | 2018-12-10 20:32 | RAD ---
PORTABLE FRONTAL CHEST RADIOGRAPH: 12/10/2018 HISTORY: Cough. COMPARISON: 01/20/2018 FINDINGS: Heart and mediastinal contours are unremarkable. There is no pneumothorax, pleural fluid, focal cons olidation, or alveolar edema. There is right-sided thoracic spine osteophyte formation. IMPRESSION: No acute findings. POS: [facility]
[2018-12-10 21:02] LABS: ALT (SGPT) 54 U/L (8-55); AST (SGOT) 45 U/L (5-34); Albumin 3.7 g/dL (3.5-5.0); Alkaline Phosphatase 120 U/L (40-150); Anion Gap 14 mmol/L (10-20); BUN (Urea Nitrogen) 20 mg/dL (8.4-25.7); Bilirubin, Total 0.4 mg/dL (0.2-1.2); CK (CPK) 50 U/L (30-200); Calc. Creatinine Clearance 0 mL/min (70-130); Calcium 9.3 mg/dL (7.8-10.44); Carbon Dioxide 23 mmol/L (22-29); Chloride 108 mmol/L (98-107); Estimated GFR-MDRD 88; Glucose 120 mg/dL (70-105); Lipase 32 U/L (8-78); Potassium 4.2 mmol/L (3.5-5.1); Protein, Total 6.7 g/dL (6.0-8.3); Sodium 141 mmol/L (136-145)
[2018-12-10 21:07] LABS: #Eosinphils 0.2 thou/uL (0.0-0.7); #Lymphocytes 1.9 thou/uL (1.20-3.40); #Monocytes 0.5 thou/uL (0.11-0.59); #Neutrophils 1.7 thou/uL (1.40-6.50); %Basophils 1.1 % (0.0-1.0); %Eosinophils 5.6 % (0.0-10.0); %Lymphocytes 42.3 % (21.0-51.0); %Monocytes 11.9 % (0.0-10.0); %Neutrophils 39.1 % (42.0-75.0); Hemoglobin 13.8 g/dL (14.0-18.0); Mean Corpuscular HGB CONC 29.2 g/dL (32.0-36.0); Mean Corpuscular Hemoglobin 25.3 pg (27.0-31.0); Mean Corpuscular Volume 86.8 fL (78.0-98.0); Mean Platelet Volume 7.7 fL (7.4-10.4); Platelet Count 205 thou/uL (130-400); RBC Distribution Width 12.1 % (11.5-14.5); RBC Morphology Normal; Red Blood Cell (RBC) Count 5.45 mill/uL (4.70-6.10); White Blood Cell (WBC) Count 4.4 thou/uL (4.8-10.8)
[2018-12-10 23:32] LABS: Bilirubin Negative (Negative); Blood, Urine Negative (Negative); Clarity CLEAR (Clear); Glucose, Urine (Dipstick) Negative (Negative); Leukocyte Negative (Negative); Nitrite Negative (Negative); Protein, Urine (Dipstick) 30 mg/dL (Neg-Trace); Specific Gravity, Urine 1.017 (1.002-1.036)
[2018-12-10 23:34] LABS: Bacteria/HPF None Seen HPF (None Seen); Hyaline Casts/LPF 0-3 HYALINE CAST LPF (0-3 Hyaline); RBC/HPF 0-3 HPF (0-3); Squamous Epithelial None Seen HPF (0-3); WBC/HPF None Seen HPF (0-3)
== END 2018-12-10 22:10 | disposition home or self-care (01) ==
LOC: ERS 17:11
DX: J20.9 Acute bronchitis, unspecified (principal); E11.9 Type 2 diabetes mellitus without complications; G43.909 Migraine, unspecified, not intractable, without status migrainosus; F41.9 Anxiety disorder, unspecified; F32.9 Major depressive disorder, single episode, unspecified; Z79.899 Other long term (current) drug therapy
CPT/HCPCS: 36415; 71045; 80053; 81003; 81015; 82550; 83605; 83690; 84484; 85025; 87040; 87804; 93005; 96361; 96374; J1885